=== PATIENT | male | born 1955 | race Caucasian/White ===

== ENCOUNTER 2016-11-15 08:50 | Day surgery (SDC) | payer OTHER ==
[~2016-11-15] VITALS: Ht 188 cm; Wt 78.7 kg
[2016-11-15 09:51] VITALS: Ht 188 cm; Wt 78.7 kg
[2016-11-15] MEDS ORDERED: VAL2 PO (09:58)
[2016-11-15] MEDS ORDERED: OXYC-209 PO (09:58)
[2016-11-15] MEDS ORDERED: OMEP10CA4 PO (09:58)
[2016-11-15] MEDS ORDERED: ANTI NAUSEA MED (09:58)
[2016-11-15 10:42] VITALS: BP 156/73; PULSE 71; RESP 14
[2016-11-15] MEDS ORDERED: PROPOFOL 20 ML ONE (10:42)
[2016-11-15] MEDS ORDERED: LIDOCAINE 2% (SDV) 5 ML INJ ONE (10:42)
[2016-11-15] MEDS ORDERED: MIDAZOLAM 1 MG/ML 2 ML INJ ONE (10:42)
[2016-11-15 11:25] VITALS: BP 144/76; PULSE 64; RESP 18
--- NOTE | 2016-11-15 12:07 | GILP ---
DATE OF PROCEDURE: NAME OF PROCEDURES: Esophagogastroduodenoscopy and biopsy. SURGEON: Tucker Kearns MD PREOPERATIVE DIAGNOSES: 1. Abdominal pain. 2. Vomiting. POSTOPERATIVE DIAGNOSES: 1. Gastritis with erosions. 2. Gastric mucosal biopsies were taken for Helicobacter pylori test. INDICATION FOR THE PROCEDURE: Mr. Maxx Armenta is a 61-year-old male patient who was complaining of upper abdominal pain and vomiting, not responding to therapy. The patient was scheduled for endo scopic examination for further evaluation. The procedure and possible complications are well explained to the patient, he understood and consen sarahi to the procedure. DESCRIPTION OF PROCEDURE: Under the influence of anesthesia, the gastroscope was carefully introduc ed into the esophagus and under direct vision, it was advanced to the stomach and through the pyloru s into the duodenal bulb and descending duodenum. FINDINGS: ESOPHAGUS: The mucosa was normal. STOMACH: The patient had gastritis with erosions. Gastric mucosal biopsies were taken for H. pylor i test. DUODENUM: Normal. He tolerated the procedure very well and there was no complication from the procedure. At the end o f the procedure, he was awake with stable vital signs and he was discharged home to the care of his family. IMPRESSION: 1. Gastritis with erosions. 2. Gastric mucosal biopsies were taken for Helicobacter pylori test. PLAN: 1. Continue omeprazole. 2. Reglan p.r.n. for vomiting. 3. Small bowel x-rays with barium for further evaluation of vomiting. Dictated By: TUCKER SAWANT/ROSA Conf#: [id number] DID#: [id number]
--- NOTE | 2016-11-16 07:45 | CONS ---
DATE OF ADMISSION: 11/15/2016 DATE OF CONSULTATION: TYPE OF CONSULTATION: Preoperative gastroenterology. Dear Dr. Basurto: I thank you very much for this kind referral. HISTORY OF PRESENT ILLNESS: Mr. Natacha Lamar is a 61-year-old male patient who has been referred to me for further evaluation of upper abdominal pain associated with vomiting. There is no definite pa st history of peptic ulcer disease. His appetite has been poor, and he has been losing weight. He is not taking any nonsteroidal anti-inflammatory agents. There is no history of gallstones. He ba s not have any fever, chills or jaundice. There is no history of liver disease. The patient says helio hoang went to the emergency room and he had abdominal CT scan done. The patient says he was told that helio hoang has got abdominal aortic aneurysm. He denies any change in the bowel habit or rectal bleeding. T he patient says he had a colonoscopy 5 years ago and no colon neoplasm was identified. He is not a hypertensive or diabetic. He does not have any heart disease or lung problem. There is no history of kidney disease. He is status post back surgery. SOCIAL HISTORY: He is a smoker. He denies alcohol abuse. FAMILY HISTORY: Negative for gastrointestinal tract neoplasm. ALLERGIES: THERE IS NO HISTORY OF SIGNIFICANT DRUG ALLERGY. MEDICATIONS: 1. Reglan. 2. Pain medications. PHYSICAL EXAMINATION: GENERAL: He is 6 feet 2 inches tall, and he weighs 180 pounds. HEART: Normal first and second heart sounds. LUNGS: Clear. ABDOMEN: Soft without any distention. Liver and spleen are not palpable. There are no masses. Th ere is slight epigastric tenderness. There is no muscle guarding. There is no rebound tenderness. Normal bowel sounds are heard. CENTRAL NERVOUS SYSTEM: Examination does not reveal any focal neurological deficit. IMPRESSION: 1. Upper abdominal pain and vomiting. 2. The patient has been taking Reglan. 3. The patient also complains of weight loss. 4. The patient went to the emergency room, and he had abdominal CT scan done, and he says that he w as told he has got abdominal aortic aneurysm. 5. The patient says he had a colonoscopy 5 years ago and no colon neoplasm was identified. 6. Status post back surgery. 7. The patient is a smoker. PLAN: 1. Omeprazole 40 mg p.o. q.a.m. 2. Continue Reglan 10 mg p.o. t.i.d. p.r.n. for vomiting. 3. Endoscopic examination for further evaluation. 4. The patient will need monitored anesthesia care for the procedure because he will be resistant t o narcotics. 5. The patient was strongly advised to see a vascular surgeon for further evaluation of abdominal a ortic aneurysm. The procedure and possible complications are well explained to the patient. He understands and cons ents to the procedure. I thank you once again. With warmest personal regards, Dictated By: CATRINA SAWANT/ROSA Conf#: [id number] DID#: [id number]
== END 2016-11-15 12:02 | disposition home or self-care (01) ==
LOC: GIL 08:50
PROVIDERS: ATTEND Internal Medicine Gastroenterology
DX: K29.60 Other gastritis without bleeding (principal); F17.200 Nicotine dependence, unspecified, uncomplicated
CPT/HCPCS: 43239; 87081; J2250; Z7610

== ENCOUNTER 2017-02-20 14:55 | Emergency (ER) | payer OTHER ==
[~2017-02-20] VITALS: Ht 188 cm; Wt 80.0 kg
[~2017-02-20 14:55] MED LIST: ANTI NAUSEA MED; OMEP10CA4 PO; OXYC-209 PO; VAL2 PO
[2017-02-20 14:57] VITALS: Ht 188 cm; Wt 80.0 kg
[2017-02-20] MEDS ORDERED: morphine 4 MG/ML VIAL IV STA (16:28)
[2017-02-20] MEDS ORDERED: ONDANSETRON 4 MG INJ IV STA (16:28)
--- NOTE | 2017-02-20 16:39 | ERD ---
ER Documentation Chief Complaint Date/Time DATE: 02/20/17 TIME: 16:32 Chief Complaint CHEST PAIN X 1 MONTH , WORSE X 2 DAYS HPI Patient is a 61-year-old male who presents with gradual onset, constant, progressive bilateral back and left-sided chest pain for 3 months. He reports having a surgery at L5-S1 in 2006, and since that time has had chronic back pain. He states that he has had chronic weakness and numbness in his left leg. He denies incontinence. He denies acute worsening of lower extremity weakness , but states that his feet feel more numb over the last week. He is also had more difficulty walking due to pain. His daughter reports that he has not eaten anything for 2 weeks. She denies vomiting. The patient states that he was seen at [facility] 48 hours ago, and was advised to be transferred to [facility] for admission due "fibrillation". He chose not to be transferred. Patient denies fever. The patient has been receiving pain control from his primary doctor, who he saw last week. He has an appointment in 2 days with a rn pain management. He has not had any consultation with a neurosurgeon since his surgery 2006. ROS All systems reviewed and are negative except as per history of present illness. Medications Home Meds Active Scripts Famotidine* (Pepcid*) 20 Mg Tablet, 20 MG PO BID for 10 Days, TAB Prov:KENTON HALL MD 02/20/17 Ondansetron (Ondansetron Odt) 4 Mg Tab.rapdis, 4 MG PO Q6H Y for NAUSEA AND/OR VOMITING, #21 TAB Prov:KENTON HALL MD 02/20/17 Reported Medications Ondansetron Hcl* (Ondansetron Hcl*) 8 Mg Tablet, 8 MG PO DAILY Y for NAUSEA AND OR VOMITING, TAB 02/20/17 Carisoprodol* (Carisoprodol*) 350 Mg Tablet, 350 MG PO QHS Y for MUSCLE SPASMS, TAB 02/20/17 Alprazolam* (Xanax*) 0.5 Mg Tab, 0.5 MG PO QHS Y for ANXIETY, TAB 02/20/17 Oxycodone HCl/Acetaminophen (Percocet 10-325 mg Tablet) 1 Each Tablet, 1 EACH PO TID, TAB 02/20/17 Discontinued Reported Medications Omeprazole* (Omeprazole*) 10 Mg Capsule.dr, 10 MG PO BID, #60 CAP 11/15/16 Oxycodone HCl/Acetaminophen (Percocet 10-325 mg Tablet) 1 Each Tablet, 1 EACH PO , TAB 11/15/16 [Anti Nausea Med] No Conflict Check 11/15/16 Diazepam* (Valium*) 2 Mg Tab, 2 MG PO, TAB 11/15/16 Allergies Allergies: Coded Allergies: No Known Allergy (Unverified , 02/20/17) PMhx/Soc Past medical history: Hypertension (not on medication), chronic back pain, 4 cm abdominal aortic aneurysm (last image 1 month ago) Past surgical history: Lumbar spine, right thumb, face Social history: Smokes cigarettes. Denies alcohol or illicit drugs. History of Surgery: Yes (SPINAL FUSION, RIGHT EYE SURGERY, TOUNGE SURGERY) Anesthesia Reaction: No Hx Neurological Disorder: No Hx Respiratory Disorders: No Hx Cardiac Disorders: No Hx Psychiatric Problems: No Hx Miscellaneous Medical Probl: No Hx Alcohol Use: No Hx Substance Use: No Hx Tobacco Use: Yes (1/2 PACK DAY) Smoking Status: Current every day smoker FmHx Family History: coronary disease, No diabetes Physical Exam Vitals Vital Signs Date Time Temp Pulse Resp B/P Pulse Ox O2 Delivery O2 Flow Rate FiO2 02/20/17 21:00 98.9 82 20 124/104 100 Room Air 02/20/17 18:35 99.6 75 12 124/104 97 Room Air 02/20/17 17:46 73 18 133/93 99 Room Air 02/20/17 16:59 Nasal Cannula 2 02/20/17 14:57 99.1 92 18 151/88 98 Physical Exam Const: Alert, moderate distress Head: Atraumatic Eyes: Normal Conjunctiva, no pallor, no icterus ENT: Normal External Ears, Nose and Mouth. Mucous membranes moist Neck: Full range of motion..~ No meningismus. Resp: Clear to auscultation bilaterally, no wheezes, no rales Cardio: Regular rate and rhythm, no murmurs, 2+ pulses in 4 extremities Abd: Soft, non tender, non distended. No pulsatile mass Skin: No petechiae or rashes Back: No midline or flank tenderness Ext: No cyanosis, or edema Neur: Awake and alert, cranial nerves II through XII intact bilaterally, diminished sensation and strength symmetrically in the lower legs. Psych: Normal Mood and Affect Result Diagram: 02/20/17 1637 02/20/17 1637 Results 24 hrs Laboratory Tests Test 02/20/17 16:37 02/20/17 19:35 White Blood Count 9.310^3/ul Red Blood Count 4.0810^6/ul Hemoglobin 13.7g/dl Hematocrit 41.5% Mean Corpuscular Volume 101.7fl Mean Corpuscular Hemoglobin 33.6pg Mean Corpuscular Hemoglobin Concent 33.0g/dl Red Cell Distribution Width 11.9% Platelet Count 84247^3/UL Mean Platelet Volume 10.3fl Neutrophils % 55.0% Lymphocytes % 37.2% Monocytes % 6.8% Eosinophils % 0.3% Basophils % 0.5% Nucleated Red Blood Cells % 0.0/100WBC Neutrophils # 5.110^3/ul Lymphocytes # 3.510^3/ul Monocytes # 0.610^3/ul Eosinophils # 0.010^3/ul Basophils # 0.110^3/ul Nucleated Red Blood Cells # 0.010^3/ul Prothrombin Time 12.4Sec Prothrombin Time Ratio 1.0 INR International Normalized Ratio 0.92 Activated Partial Thromboplast Time 28.2Sec D-Dimer 470.20ng/ml D-Dimer Comment Sodium Level 147mmol/L Potassium Level 4.2mmol/L Chloride Level 103mmol/L Carbon Dioxide Level 26mmol/L Anion Gap 22 Blood Urea Nitrogen 16mg/dl Creatinine 1.18mg/dl Glucose Level 93mg/dl Calcium Level 9.9mg/dl Total Bilirubin 0.3mg/dl Direct Bilirubin 0.00mg/dl Indirect Bilirubin 0.3mg/dl Aspartate Amino Transf (AST/SGOT) 22IU/L Alanine Aminotransferase (ALT/SGPT) 23IU/L Alkaline Phosphatase 73IU/L Troponin I < 0.012ng/ml Total Protein 8.0g/dl Albumin 4.5g/dl Globulin 3.50g/dl Albumin/Globulin Ratio 1.28 Urine Color YELLOW Urine Clarity CLEAR Urine pH 5.0 Urine Specific [place] 1.029 Urine Ketones 2+mg/dL Urine Nitrite NEGATIVEmg/dL Urine Bilirubin NEGATIVEmg/dL Urine Urobilinogen 1+mg/dL Urine Leukocyte Esterase NEGATIVELeu/ul Urine Microscopic RBC 10/HPF Urine Microscopic WBC 1/HPF Urine Mucus FEW/HPF Urine Hemoglobin 1+mg/dL Urine Glucose NEGATIVEmg/dL Urine Total Protein NEGATIVEmg/dl Current Medications Medications (Trade) Dose Ordered Sig/Travis Route PRN Reason Start Time Stop Time Status Last Admin Dose Admin Morphine Sulfate (morphine) 4 mg ONCE STAT IV 02/20/17 16:28 02/20/17 16:30 DC 02/20/17 16:58 Ondansetron HCl 4 mg 4 mg ONCE STAT IV 02/20/17 16:28 02/20/17 16:30 DC 02/20/17 16:58 Sodium Chloride (NS) 1,000 ml @ 1,000 mls/hr Q1H ONCE IV 02/20/17 20:30 02/20/17 21:29 DC 02/20/17 19:55 Procedures/MDM EKG read by me: Time 1458, rate 94 Rhythm: Normal sinus Ashby: Right axis deviation Intervals: Normal ST-T waves: no ischemic changes Ectopy: No Q-waves: No Impression: No evidence of ischemia or arrhythmia MDM: Patient is a 61-year-old male with chronic pain syndrome who presents to the ER with worsening bilateral back pain now radiating to his chest. He states that he has had similar pain over the last 3 months. He has been on narcotic medications and muscle relaxants for several years. He has not been seeing a pain production control clerk or neurosurgeon. He does have a an appointment scheduled next week with a neurosurgeon. The patient was seen in an ER 2 days ago and advised to be transferred to [facility] for further chest pain workup. On my history, it is apparent that his pain is atypical for coronary ischemia, and is related to his chronic back pain. He has a nonischemic EKG in the setting of initially severe pain, and his troponin is not elevated. I obtained records from [facility], and found that the patient had unremarkable EKG and troponin 2 days ago. There is no documentation of arrhythmia during that visit. I contacted the patient's primary doctor, Dr. Basurto, and he stated that the patient's symptoms sound consistent with his chronic pain. He stated that he would be willing to see the patient in clinic in the next 1-2 days. Patient was given 4 mg of morphine , and on reassessment he appeared comfortable and reported minimal pain. The patient does have a history of a 4 cm aortic aneurysm and had a recent ultrasound within the last couple months. His symptoms are not suggestive of aortic aneurysmal rupture or dissection. He had normal pulses in 4 extremities. His d-dimer was not elevated. His chest x-ray was unremarkable. I spoke with the patient extensively about the need to arrange for follow-up with multiple specialists and to find a rn pain management. I did advise him on return precautions, and advised him to see his PMD in the next 1- 2 days. The patient appeared comfortable and had benign vital signs at the time of his discharge. I believe his symptoms are due to exacerbation of chronic pain. Departure Diagnosis: Primary Impression: Chronic back pain Back pain location: low back pain Back pain laterality: bilateral Sciatica presence: with sciatica Sciatica laterality: sciatica of left side Qualified Code: M54.42 - Chronic bilateral low back pain with left-sided sciatica Additional Impressions: Chest pain Chest pain type: unspecified Qualified Code: R07.9 - Chest pain, unspecified type Gastritis Gastritis type: unspecified gastritis Chronicity: chronic Gastritis bleeding: without bleeding Qualified Code: K29.50 - Chronic gastritis without bleeding, unspecified gastritis type Condition: KENTON Choi MD Feb 20, 2017 16:39
[2017-02-20 16:43] LABS: ADD SCAN DIFF NO
[2017-02-20 16:48] LABS: BASOPHIL # 0.1 10^3/ul (0.0-0.1); BASOPHILS % 0.5 % (0.0-2.0); EOSINOPHILS % 0.3 % (0.0-7.0); HEMATOCRIT 41.5 % (42.0-52.0); HEMOGLOBIN 13.7 g/dl (14.0-18.0); LYMPHOCYTES # 3.5 10^3/ul (0.8-2.9); LYMPHOCYTES % 37.2 % (15.0-51.0); MEAN CORPUSCULAR HEMOGLOBIN 33.6 pg (29.0-33.0); MEAN CORPUSCULAR VOLUME 101.7 fl (82.0-101.0); MEAN PLATELET VOLUME 10.3 fl (7.4-10.4); MONOCYTE # 0.6 10^3/ul (0.3-0.9); MONOCYTES % 6.8 % (0.0-11.0); NEUTROPHIL # 5.1 10^3/ul (1.6-7.5); PLATELET COUNT 244 10^3/UL (140-415); RED BLOOD COUNT 4.08 10^6/ul (4.70-6.10); RED CELL DISTRIBUTION WIDTH 11.9 % (11.5-14.5); WHITE BLOOD COUNT 9.3 10^3/ul (4.8-10.8)
[2017-02-20] MEDS ORDERED: OXYC-209 PO (16:51)
[2017-02-20] MEDS ORDERED: ALPR0.5T PO (16:52)
[2017-02-20] MEDS ORDERED: CARI350T29 PO (16:53)
[2017-02-20] MEDS ORDERED: ONDA8TAB83 PO (16:53)
[2017-02-20 17:05] LABS: INR 0.92; PROTIME 12.4 Sec (12.2-14.2)
[2017-02-20 17:06] LABS: PARTIAL THROMBOPLASTIN TIME 28.2 Sec (25.0-35.0)
[2017-02-20 17:10] LABS: ALANINE AMINOTRANSFERASE 23 IU/L (13-69); ALBUMIN 4.5 g/dl (3.3-4.9); ALBUMIN/GLOBULIN RATIO 1.28; ALKALINE PHOSPHATASE 73 IU/L (42-121); ANION GAP 22 (8-16); ASPARTATE AMINO TRANSFERASE 22 IU/L (15-46); BILIRUBIN,INDIRECT 0.3 mg/dl (0-1.1); BILIRUBIN,TOTAL 0.3 mg/dl (0.2-1.3); BLOOD UREA NITROGEN 16 mg/dl (7-20); CALCIUM 9.9 mg/dl (8.4-10.2); CARBON DIOXIDE 26 mmol/L (21-31); CHLORIDE 103 mmol/L (97-110); CREATININE 1.18 mg/dl (0.61-1.24); GLUCOSE 93 mg/dl (70-220); POTASSIUM 4.2 mmol/L (3.5-5.1); SODIUM 147 mmol/L (135-144)
[2017-02-20 17:12] LABS: D-DIMER 470.2 ng/ml (<460)
[2017-02-20 17:27] LABS: TROPONIN-I < 0.012 ng/ml (0.00-0.12)
--- NOTE | 2017-02-20 18:11 | RADRPT ---
PROCEDURE: X-ray lumbar spine CLINICAL INDICATION: Back pain. Chest pain. TECHNIQUE: 3 views lumbar spine COMPARISON: None FINDINGS: Mild curvature of the lumbar spine convex to the right. Surgical changes of discectomy and internal metallic fixation at the L5-S1 level. Small anterior endplate osteophytes seen at multiple levels. Mild posterior facet degenerative changes throughout the lumbar spine, greater in the lower lumbar spine. IMPRESSION: Mild degenerative changes, without acute fracture. RPTAT: [facility] Physician Leigh Date Time Electronically viewed and signed by Physician Leigh on 02/20/2017 18:11 RS/
--- NOTE | 2017-02-20 18:12 | RADRPT ---
PROCEDURE: XR Chest. CLINICAL INDICATION: Chest pain. TECHNIQUE: Single frontal view. COMPARISON: None. FINDINGS: The lungs are clear. The heart size is normal. There is no pleural effusion. There is no pneumothorax. IMPRESSION: 1. Normal chest radiograph. RPTAT: QQ .Trae Jones MD, Date Time Electronically viewed and signed by .Trae Jones MD, on 02/20/2017 18:11 .R/
[2017-02-20 20:18] LABS: ADD UMIC YES; UR ASCORBIC ACID 40 mg/dL (NEGATIVE); UR BILIRUBIN (Dip) NEGATIVE (NEGATIVE); UR BLOOD (Dip) 1+ mg/dL (NEGATIVE); UR CLARITY CLEAR (CLEAR); UR COLOR YELLOW (YELLOW); UR GLUCOSE (Dip) NEGATIVE (NEGATIVE); UR KETONES (Dip) 2+ mg/dL (NEGATIVE); UR LEUKOCYTE ESTERASE (Dip) NEGATIVE Leu/ul (NEGATIVE); UR MUCUS FEW /HPF (NONE SEEN); UR NITRITE (Dip) NEGATIVE (NEGATIVE); UR RBC 10 /HPF (0-5); UR SPECIFIC GRAVITY (Dip) 1.029 (1.003-1.030); UR TOTAL PROTEIN (Dip) NEGATIVE (NEGATIVE); UR UROBILINOGEN (Dip) 1+ mg/dL (NEGATIVE)
[2017-02-20] MEDS ORDERED: ONDA4TAB14 PO (20:22)
[2017-02-20] MEDS ORDERED: FAMO-96 PO (20:22)
[2017-02-20] MEDS ORDERED: SOD CHLORIDE 0.9% 1,000 ML IV ONE (20:30)
[2017-02-20 21:00] VITALS: BP 124/104; PULSE 82; RESP 20; TEMP 98.9
== END 2017-02-20 21:37 | disposition home or self-care (01) ==
LOC: E/R 14:55
DX: M54.42 Lumbago with sciatica, left side (principal); K29.50 Unspecified chronic gastritis without bleeding; I10 Essential (primary) hypertension; F17.210 Nicotine dependence, cigarettes, uncomplicated
CPT/HCPCS: 36415; 71010; 72100; 80053; 84484; 85025; 85378; 85610; 85730; 93005; 96374; 96375; J2270; J2405; J7030; Z7502

== ENCOUNTER 2018-01-08 17:08 | Inpatient (IN) | END 2018-01-13 18:00 | disposition home or self-care (01) | DRG 470 ==